=== PATIENT | female | born 1950 | race African-American/Black ===

== ENCOUNTER 2020-03-22 07:54 | Outpatient (CLI) | payer MEDICARE, OTHER ==
[2020-03-22 16:44] LABS: #Eosinphils 0.2 thou/uL (0.0-0.7); #Lymphocytes 3.2 thou/uL (1.20-3.40); #Monocytes 0.6 thou/uL (0.11-0.59); #Neutrophils 3.2 thou/uL (1.40-6.50); %Basophils 0.4 % (0.0-1.0); %Eosinophils 2.5 % (0.0-10.0); %Lymphocytes 44.2 % (21.0-51.0); %Monocytes 8.1 % (0.0-10.0); %Neutrophils 44.8 % (42.0-75.0); Hemoglobin 11.7 g/dL (12.0-16.0); Mean Corpuscular HGB CONC 32.4 g/dL (32.0-36.0); Mean Corpuscular Hemoglobin 32.4 pg (27.0-31.0); Mean Platelet Volume 8.2 fL (7.4-10.4); Platelet Count 312 thou/uL (130-400); Red Blood Cell (RBC) Count 3.62 mill/uL (4.20-5.40); White Blood Cell (WBC) Count 7.1 thou/uL (4.8-10.8)
[2020-03-22 16:49] LABS: INR-International Normal Ratio 0.9; Prothrombin Time 12.1 sec (12.0-14.7)
[2020-03-22 16:50] LABS: PTT 28.2 sec (22.9-36.1)
[2020-03-22 17:09] LABS: Anion Gap 11 mmol/L (10-20); BUN (Urea Nitrogen) 18 mg/dL (9.8-20.1); Calc. Creatinine Clearance 0 mL/min (70-130); Calcium 9.1 mg/dL (7.8-10.44); Carbon Dioxide 28 mmol/L (23-31); Chloride 107 mmol/L (98-107); Estimated GFR-MDRD 55; Glucose 136 mg/dL (80-115); Potassium 4.3 mmol/L (3.5-5.1); Sodium 142 mmol/L (136-145)
[2020-03-23 12:06] LABS: SARS-CoV-2 MS2 Positive; SARS-CoV-2 N Gene Negative; SARS-CoV-2 S Gene Negative; SARS-CoV-2 by NAA Not Detected (NotDetected); SARS-CoV-2 orf1ab Negative
== END 2020-03-22 07:55 | disposition home or self-care (01) ==
LOC: LABBT 07:54
PROVIDERS: ATTEND Surgery
DX: Z01.818 Encounter for other preprocedural examination (principal); Z11.59 Encounter for screening for other viral diseases; M48.061 Spinal stenosis, lumbar region without neurogenic claudication; M54.16 Radiculopathy, lumbar region
CPT/HCPCS: 80048; 85025; 85610; 85730; 93005; U0003; 87635; 93010

== ENCOUNTER 2020-03-26 07:35 | Observation (INO) | payer MEDICARE ==
[2020-03-19 12:34] VITALS: BMI 37.1
[2020-03-26] MEDS ORDERED: Lidocaine 1% PF 5 ML VIAL ONE (08:47)
[2020-03-26] MEDS ORDERED: PROPOFOL 200 MG/20 ML VIAL ONE (08:47)
[2020-03-26] MEDS ORDERED: Ondansetron PF 4 MG/2 ML Vial ONE (08:47)
[2020-03-26] MEDS ORDERED: Rocuronium Bromide 10 MG/ML (10ML VIAL) ONE (08:47)
[2020-03-26] MEDS ORDERED: PHENYLEPHRINE-NS 100 MCG/ML 10 ML SYRINGE ONE (08:47)
[2020-03-26] MEDS ORDERED: Dexamethasone 20 MG/5 ML VIAL ONE (08:47)
[2020-03-26] MEDS ORDERED: EPHEDRINE 25 MG/5 ML SYRINGE ONE (08:47)
[2020-03-26] MEDS ORDERED: Glycopyrrolate 0.2 MG/ML 5 ML SYRINGE ONE (08:47)
[2020-03-26] MEDS ORDERED: Fentanyl 100 MCG/2 ML VIAL ONE ×3 (09:12→13:21)
[2020-03-26] MEDS ORDERED: Thrombin 5000 UNITS/5 ML VIAL ONE ×2 (09:29→11:26)
[2020-03-26] MEDS ORDERED: Ondansetron PF 4 MG/2 ML Vial IVP PRN (12:32)
[2020-03-26] MEDS ORDERED: diphenhydrAMINE 25 MG CAP PO PRN (12:32)
[2020-03-26] MEDS ORDERED: Fleet Enema 133 ML BOT PR PRN (12:32)
[2020-03-26] MEDS ORDERED: Milk Of Magnesia 30 ML UDCUP PO PRN (12:32)
[2020-03-26] MEDS ORDERED: Bisacodyl 10 MG SUPP PR PRN (12:32)
[2020-03-26] MEDS ORDERED: Acetaminophen 325 MG TAB PO PRN (12:32)
[2020-03-26] MEDS ORDERED: Mag-Al 1200 mg/1200 mg/30 ML UDCUP PO PRN (12:32)
[2020-03-26] MEDS ORDERED: traMADol HCl 50 MG TAB PO PRN (12:32)
[2020-03-26] MEDS ORDERED: PACU-Morphine 4MG/ML VIAL SLOW IVP PRN (12:41)
[2020-03-26] MEDS ORDERED: Morphine Sulfate 2 MG/ML SYRINGE SLOW IVP PRN (12:41)
[2020-03-26] MEDS ORDERED: Ondansetron HCl/PF 4 MG/2 ML Vial IVP PRN (12:41)
[2020-03-26] MEDS ORDERED: Meperidine HCl/PF 25 MG/ML VIAL SLOW IVP PRN (12:41)
[2020-03-26] MEDS ORDERED: Promethazine HCl 25 MG/ML VIAL SLOW IVP PRN (12:41)
[2020-03-26] MEDS ORDERED: HYDROmorphone 2 MG/ML VIAL SLOW IVP PRN (12:41)
[2020-03-26] MEDS ORDERED: Promethazine HCl 25 MG/ML VIAL IM PRN (12:41)
[2020-03-26] MEDS: Gabapentin 300 MG CAP PO SCH ×2 (14:41→21:31)
[2020-03-26] MEDS: Morphine 2 MG/ML VIAL SLOW IVP PRN (14:41)
[2020-03-26] MEDS: hydrALAZINE 25 MG TAB PO SCH ×2 (14:46→21:30)
[2020-03-26] MEDS: Sodium Chloride 0.9% 1,000 ML IV SCH (14:47)
[2020-03-26] MEDS: HYDROcodone/Acetaminophen 7.5/325 mg Tablet PO PRN ×2 (15:38→21:30)
[2020-03-26] MEDS: CEFAZOLIN 2 GM in Premix Bag 1 BAG IVPB SCH (16:14)
[2020-03-26] MEDS: Acetaminophen/Codeine 30-300mg Tablet PO PRN (18:44)
[2020-03-26] MEDS: Metoprolol Tartrate 50 MG TAB PO SCH (21:30)
[2020-03-26] MEDS: Amlodipine 10 MG TAB PO SCH (21:31)
[2020-03-27] MEDS: CEFAZOLIN 2 GM in Premix Bag 1 BAG IVPB SCH (00:15)
[2020-03-27] MEDS: Sodium Chloride 0.9% 1,000 ML IV SCH ×2 (01:23→14:39)
[2020-03-27] MEDS: HYDROcodone/Acetaminophen 7.5/325 mg Tablet PO PRN ×4 (06:55→20:53)
[2020-03-27] MEDS: Losartan 25 MG TAB PO SCH (08:35)
[2020-03-27] MEDS: Fluticasone Propionate Nasal Spray 16 gm Bottle NASAL SCH (08:35)
[2020-03-27] MEDS: Hydrochlorothiazide 25 MG TAB PO SCH (08:35)
[2020-03-27] MEDS: Gabapentin 300 MG CAP PO SCH ×3 (08:36→20:52)
[2020-03-27] MEDS: hydrALAZINE 25 MG TAB PO SCH ×3 (08:36→20:55)
[2020-03-27] MEDS: Metoprolol Tartrate 50 MG TAB PO SCH ×2 (08:36→20:55)
--- NOTE | 2020-03-27 08:41 | OP ---
DATE OF PROCEDURE: 03/26/2020 SURGEON: Rm Howard MD [facility] FARMWORKER: Dahiana Baker PA-C PREPROCEDURE DIAGNOSIS: Multilevel lumbar stenosis with low back and leg pain. POSTPROCEDURE DIAGNOSIS: Multilevel lumbar stenosis with low back and leg pain. PROCEDURE: 1. L2-L3, L3-L4, L4-L5 laminectomies, partial facetectomies, and foraminotomies. 2. Left L5-S1 hemilaminotomy and foraminotomy. DESCRIPTION OF PROCEDURE: After informed consent was obtained from the patient, the patient was brought to the OR. Proper patient, pause, and identification were carried out. She was placed under excellent endotracheal anesthesia and positioned prone on the OR table. All appropriate points were padded. We identified the L2-S1 dorsal spines and a linear flynn was made over this region. This area was sterilely cleansed, prepared, and draped. Proper patient, pause, and identification were carried out. The wound was then opened with a combination of sharp, monopolar, and blunt dissection. The L2-L3, L4-L5 and left L5-S1 segments were exposed. Localization film confirmed area of interest. We then performed L2 through L5 laminectomy, partial facetectomy, and foraminotomies with excellent decompression of common dural tube and nerve roots. Left L5-S1 hemilaminotomy and foraminotomy was then performed with excellent decompression of the traversing left S1 nerve root. Copious irrigation occurred throughout as did maximizing hemostasis. The wound was then closed in anatomic layers following sprinkling of vancomycin powder. The patient then emerged from anesthesia. Job ID: [id number]
[2020-03-27] MEDS ORDERED: Dexamethasone 4 mg/ml Vial SLOW IVP SCH (11:49)
--- NOTE | 2020-03-27 12:20 | PRG ---
DATE OF SERVICE: Ms. Beavers is postoperative day 1, multilevel lumbar laminectomy, left-sided hemilaminotomy. She is doing well with improvement in her leg pain. She has a little bit of pain in the left lateral lower leg consistent with left L5 dermatomal distribution. We will give her just a touch of Decadron. We are waiting for inpatient rehab approval. She could go as early as today. We will make sure she is voiding satisfactorily with postvoid residual assessment. Job ID: [id number]
[2020-03-27] MEDS: Morphine 2 MG/ML VIAL SLOW IVP PRN (17:56)
[2020-03-27] MEDS: tiZANidine HCl 4 MG TAB PO PRN (17:57)
[2020-03-27] MEDS: Amlodipine 10 MG TAB PO SCH (20:55)
[2020-03-28] MEDS: tiZANidine HCl 4 MG TAB PO PRN ×2 (00:46→08:54)
[2020-03-28] MEDS: HYDROcodone/Acetaminophen 7.5/325 mg Tablet PO PRN ×4 (00:46→20:30)
[2020-03-28] MEDS: Sodium Chloride 0.9% 1,000 ML IV SCH ×2 (06:05→17:14)
[2020-03-28] MEDS: Losartan 25 MG TAB PO SCH (08:33)
[2020-03-28] MEDS: Hydrochlorothiazide 25 MG TAB PO SCH (08:33)
[2020-03-28] MEDS: Gabapentin 300 MG CAP PO SCH ×3 (08:34→20:26)
[2020-03-28] MEDS: hydrALAZINE 25 MG TAB PO SCH ×3 (08:34→20:26)
[2020-03-28] MEDS: Metoprolol Tartrate 50 MG TAB PO SCH ×2 (08:34→20:26)
[2020-03-28] MEDS: Fluticasone Propionate Nasal Spray 16 gm Bottle NASAL SCH (08:35)
[2020-03-28] MEDS: Dexamethasone 4 MG TAB PO SCH ×2 (13:33→18:10)
[2020-03-28] MEDS: FELODIPINE 10 MG PO SCH (20:41)
[2020-03-28] MEDS ORDERED: FELODIPINE 10 MG PO SCH (21:00)
[2020-03-29] MEDS: Dexamethasone 4 MG TAB PO SCH ×4 (01:25→18:07)
[2020-03-29] MEDS: tiZANidine HCl 4 MG TAB PO PRN (05:28)
[2020-03-29] MEDS: HYDROcodone/Acetaminophen 7.5/325 mg Tablet PO PRN ×3 (05:28→20:44)
[2020-03-29] MEDS: Sodium Chloride 0.9% 1,000 ML IV SCH ×2 (06:25→20:48)
[2020-03-29] MEDS: Gabapentin 300 MG CAP PO SCH ×3 (08:15→20:42)
[2020-03-29] MEDS: Losartan 25 MG TAB PO SCH (08:15)
[2020-03-29] MEDS: Fluticasone Propionate Nasal Spray 16 gm Bottle NASAL SCH (08:15)
[2020-03-29] MEDS: Metoprolol Tartrate 50 MG TAB PO SCH ×2 (08:15→20:43)
[2020-03-29] MEDS: hydrALAZINE 25 MG TAB PO SCH ×3 (08:16→20:43)
[2020-03-29] MEDS: Hydrochlorothiazide 25 MG TAB PO SCH (08:16)
--- NOTE | 2020-03-29 08:53 | PRG ---
DATE OF SERVICE: 03/29/2020 SUBJECTIVE: Ms. Beavers is now postop day 3 after undergoing L2-L5 laminectomy, partial facetectomy, and foraminotomies with left L5-S1 hemilaminotomy and foraminotomy. Patient continues to endorse low back pain and bilateral hip pain. She denies any leg pain. She does reports increased pain with ambulation but has been ambulating without any falls since surgery. She last underwent physical therapy 2 days ago and ambulated just over 200 feet. She did not receive any physical therapy yesterday. Yesterday, Decadron taper was started for any radiculitis that might be at play with her hip pain. At this time, patient can be discharged to inpatient rehab upon approval. Our team will arrange for outpatient followup in the upcoming weeks for re-evaluation and wound check. She has our office contact information and will call with any questions or concerns. Our team will continue to evaluate patient as she remains in the hospital. Job ID: [id number]
[2020-03-29] MEDS: FELODIPINE 10 MG PO SCH (20:43)
[2020-03-30] MEDS: Dexamethasone 4 MG TAB PO SCH ×2 (00:14→06:35)
[2020-03-30] MEDS: tiZANidine HCl 4 MG TAB PO PRN ×2 (00:14→20:39)
[2020-03-30] MEDS: Acetaminophen/Codeine 30-300mg Tablet PO PRN (00:20)
[2020-03-30] MEDS: HYDROcodone/Acetaminophen 7.5/325 mg Tablet PO PRN ×4 (06:35→20:35)
[2020-03-30] MEDS: Fluticasone Propionate Nasal Spray 16 gm Bottle NASAL SCH (08:47)
[2020-03-30] MEDS: Gabapentin 300 MG CAP PO SCH ×3 (08:47→20:35)
[2020-03-30] MEDS: hydrALAZINE 25 MG TAB PO SCH ×3 (08:48→20:36)
[2020-03-30] MEDS: Metoprolol Tartrate 50 MG TAB PO SCH ×2 (08:48→20:35)
[2020-03-30] MEDS: Hydrochlorothiazide 25 MG TAB PO SCH (08:48)
[2020-03-30] MEDS: Losartan 25 MG TAB PO SCH (08:48)
[2020-03-30] MEDS: Sodium Chloride 0.9% 1,000 ML IV SCH ×2 (10:49→22:35)
--- NOTE | 2020-03-30 12:06 | PRG ---
DATE OF SERVICE: 03/30/2020 The patient is now postoperative day #4 after undergoing L2 to L5 laminectomy, partial facetectomy, and foraminotomies with left L5-S1 hemilaminotomy and foraminotomy. Today, her primary complaint is continued bilateral hip pain. She has no significant pain into the legs. She has been ambulating, but reports pain associated with this. She states [place] prior to doing any physical therapy or walking. She has excellent movement and strength throughout her bilateral lower extremity myotomes. She was sitting upright at the side of the bed upon my seeing her this morning. Her lumbar wound dressing is clean, dry, and intact without any signs of drainage. Steri-Strips remain in place. Our team continues to endorse discharge to inpatient rehab facility given that the patient lives at home alone and has no family members who could stay with her if she were to go home. She would benefit from continued therapies and mobilization. She is stable for discharge at anytime upon insurance approval for rehab. Our team will continue to monitor her during her hospital stay. Please call for any neurologic changes or other concerns. Job ID: [id number]
[2020-03-30] MEDS: Dexamethasone 1 MG TAB PO SCH ×2 (13:57→19:32)
[2020-03-30] MEDS ORDERED: hydrALAZINE 10 MG TAB PO PRN (16:32)
[2020-03-30] MEDS: cloNIDine 0.1 MG TAB PO PRN (16:50)
[2020-03-30] MEDS: FELODIPINE 10 MG PO SCH (20:40)
[2020-03-31] MEDS: Dexamethasone 1 MG TAB PO SCH ×4 (00:09→19:00)
[2020-03-31] MEDS: cloNIDine 0.1 MG TAB PO PRN ×2 (00:13→15:33)
[2020-03-31] MEDS: tiZANidine HCl 4 MG TAB PO PRN ×3 (04:43→20:49)
[2020-03-31] MEDS: Losartan 25 MG TAB PO SCH (08:56)
[2020-03-31] MEDS: Metoprolol Tartrate 50 MG TAB PO SCH ×2 (08:57→20:49)
[2020-03-31] MEDS: Hydrochlorothiazide 25 MG TAB PO SCH (08:57)
[2020-03-31] MEDS: hydrALAZINE 25 MG TAB PO SCH ×3 (08:57→20:49)
[2020-03-31] MEDS: Gabapentin 300 MG CAP PO SCH ×3 (08:57→22:21)
[2020-03-31] MEDS: Fluticasone Propionate Nasal Spray 16 gm Bottle NASAL SCH (09:00)
[2020-03-31] MEDS: HYDROcodone/Acetaminophen 7.5/325 mg Tablet PO PRN (09:35)
[2020-03-31 09:36] LABS: #Monocytes 0.3 thou/uL (0.11-0.59); #Neutrophils 8.4 thou/uL (1.40-6.50); %Basophils 0.1 % (0.0-1.0); %Eosinophils 0.4 % (0.0-10.0); %Lymphocytes 18.9 % (21.0-51.0); %Monocytes 3.1 % (0.0-10.0); %Neutrophils 77.4 % (42.0-75.0); Hemoglobin 11.9 g/dL (12.0-16.0); Mean Corpuscular HGB CONC 31.7 g/dL (32.0-36.0); Mean Corpuscular Hemoglobin 31.7 pg (27.0-31.0); Mean Platelet Volume 7.7 fL (7.4-10.4); Platelet Count 386 thou/uL (130-400); Red Blood Cell (RBC) Count 3.76 mill/uL (4.20-5.40); White Blood Cell (WBC) Count 10.8 thou/uL (4.8-10.8)
[2020-03-31 09:43] LABS: Anion Gap 14 mmol/L (10-20); BUN (Urea Nitrogen) 34 mg/dL (9.8-20.1); Calc. Creatinine Clearance 75 mL/min (70-130); Calcium 9.2 mg/dL (7.8-10.44); Carbon Dioxide 25 mmol/L (23-31); Chloride 105 mmol/L (98-107); Estimated GFR-MDRD 56; Glucose 135 mg/dL (80-115); Potassium 4.3 mmol/L (3.5-5.1); Sodium 140 mmol/L (136-145)
[2020-03-31] MEDS: Sodium Chloride 0.9% 1,000 ML IV SCH (19:02)
[2020-03-31] MEDS: FELODIPINE 10 MG PO SCH (20:59)
[2020-04-01] MEDS: Sodium Chloride 0.9% 1,000 ML IV SCH ×2 (02:21→15:15)
[2020-04-01] MEDS: Dexamethasone 1 MG TAB PO SCH ×3 (02:21→14:29)
[2020-04-01 04:09] VITALS: TEMP 97.6
[2020-04-01] MEDS: tiZANidine HCl 4 MG TAB PO PRN ×2 (08:31→16:07)
[2020-04-01] MEDS: hydrALAZINE 25 MG TAB PO SCH ×2 (08:31→16:07)
[2020-04-01] MEDS: Fluticasone Propionate Nasal Spray 16 gm Bottle NASAL SCH (08:31)
[2020-04-01] MEDS: Gabapentin 300 MG CAP PO SCH ×2 (08:31→14:54)
[2020-04-01] MEDS: Losartan 25 MG TAB PO SCH (08:32)
[2020-04-01] MEDS: Hydrochlorothiazide 25 MG TAB PO SCH (08:32)
[2020-04-01] MEDS: Metoprolol Tartrate 50 MG TAB PO SCH (08:33)
[2020-04-01] MEDS ORDERED: Dexamethasone 1 MG TAB PO SCH (13:00)
[2020-04-01] MEDS: HYDROcodone/Acetaminophen 7.5/325 mg Tablet PO PRN (14:53)
[2020-04-01 15:48] VITALS: BP 177/73
[2020-04-03] MEDS ORDERED: Dexamethasone 1 MG TAB PO SCH (13:00)
== END 2020-04-01 16:35 | disposition swing bed (61) ==
LOC: SDC 07:35 → SURG B 12:32 → SDC 03-29 09:05 → SURG B 03-29 09:05
PROVIDERS: ADMIT Surgery; ATTEND Surgery
PROC: 01NB0ZZ Release Lumbar Nerve, Open Approach (ICD-10-PCS; principal; 2020-03-26)
DX: M48.061 Spinal stenosis, lumbar region without neurogenic claudication (principal); M54.16 Radiculopathy, lumbar region; I10 Essential (primary) hypertension; E66.9 Obesity, unspecified; Z68.37 Body mass index [BMI] 37.0-37.9, adult; Z87.891 Personal history of nicotine dependence; Z79.82 Long term (current) use of aspirin; Z79.899 Other long term (current) drug therapy; Z88.1 Allergy status to other antibiotic agents; Z88.2 Allergy status to sulfonamides; Z90.5 Acquired absence of kidney
CPT/HCPCS: 63047; 63048 ×3; 76000; 80048; 85025; 97110; 97116 ×5; 97530 ×3; 97535; J2270 ×2; 36415; 51701; 51798; 96374; 96375; 96376; G0378; J0690; J1100; J2405; J2704; J3010; J3370; J3490; J8540